=== PATIENT | female | born 1950 | race Caucasian/White ===

== ENCOUNTER 2025-04-07 08:30 | Day surgery (SDC) | payer MEDICARE ==
[~2025-04-07] VITALS: Ht 165.1 cm; Wt 79.5 kg
[2025-04-07] VITALS (12 sets, daily range): BP systolic 103–139; BP diastolic 73–95; PULSE 91–107; RESP 16; TEMP 98.1; O2SAT 91–99
--- NOTE | 2025-04-07 08:57 | ELECTROCARDIOGRAPH REPORT ---
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 Siri Ayala Measurements Intervals [place] Rate: 105 P: 34 MD: 192 QRS: -23 QRSD: 88 T: 29 QT: 358 QTc: 474 Interpretive Statements Sinus tachycardia Borderline left axis deviation Electronically Signed On 04-08-2025 5:55:[address] Siri Ayala Please click the below link to view image of tracing.
[2025-04-07 09:25] LABS: MEAN PLATELET VOLUME 9.4 FL (7.4-10.4); RED CELL DISTRIBUTION WIDTH 13.9 % (11.5-14.5)
[2025-04-07] MEDS ORDERED: LOSA100T58 PO (09:36)
[2025-04-07] MEDS ORDERED: SIMV5TAB58 PO (09:36)
[2025-04-07] MEDS ORDERED: PRIM50TA5 PO (09:36)
[2025-04-07 09:38] LABS: INR 1.0 INR
[2025-04-07 09:48] LABS: CREATININE 0.77 MG/DL (0.40-0.90); TOTAL CARBON DIOXIDE 28.9 MMOL/L (24-32); eCRCL 57 ML/MIN; eGFR 73 ML/MIN
[2025-04-07 10:03] LABS: PRO BRAIN NATRIURETIC PEPTIDE 74 PG/ML (0-450)
[2025-04-07] MEDS ORDERED: midazolam 1 mg/ML 2ml injection ONE ×2 (10:21→11:07)
[2025-04-07] MEDS ORDERED: fentaNYL/PF 50MCG/1 ML 2ML syringe ONE (10:21)
[2025-04-07] MEDS ORDERED: LIDOcaine 1% 30ml preserv. free vial ONE (10:21)
[2025-04-07] MEDS ORDERED: iohexol 350 MG/ML 50ML vial IV ONE (10:22)
--- NOTE | 2025-04-07 10:43 | RADIOLOGY REPORT ---
CHEST RADIOGRAPH Indication: pre heart cath Technique: Frontal and lateral view of the chest was obtained Comparison: None FINDINGS: Lines and Tubes: None Lungs: Clear Pleura: No effusion. No pneumothorax. Cardiomediastinal contours: Unremarkable Bones: Unremarkable IMPRESSION: No evidence of acute disease.
[2025-04-07] MEDS ORDERED: HYDROcodone/acetaminophen 5mg/325mg tablet PO PRN (12:15)
[2025-04-07] MEDS ORDERED: ondansetron/PF 4mg/2ml inj IV PRN (12:15)
[2025-04-07] MEDS ORDERED: OXAZEpam 15mg capsule PO PRN (12:15)
[2025-04-07] MEDS: HYDROcodone/acetaminophen 10/325mg tab PO PRN (12:18)
[2025-04-07 12:23] LABS: ISTAT HGB MIX 11.9 g/dl (12.0-16.0); ISTAT Hct MIX 35 %PCV (35-45); ISTAT O2 SATURATION MIX VENOUS 71 % (60-80); ISTAT O2 SATURATION MIX VENOUS 90 % (60-80); ISTAT SOURCE BLNK
--- NOTE | 2025-04-07 12:42 | CARDIOLOGY REPORT ---
DATE OF SERVICE: 04/07/2025 DICTATING PHYSICIAN: Isaias Cazares MD PROCEDURES: * Right heart catheterization, cardiac output, oximetry. * Left heart catheterization. * Left ventriculography. * Selective left and right coronary arteriography. * Right iliofemoral arteriogram and Angio-Seal application. * Conscious sedation administration: 30 minutes. BRIEF HISTORY AND INDICATION: A 74-year-old female with onset of class 3 dyspnea of exertion with anginal discomfort approximately 2 weeks ago. She is obese and is limited by degenerative joint disease. She is unable to keep up with her on their walks. Risks, benefits, and alternatives of diagnostic heart catheterization were discussed with her and she has decided to proceed. Risks included not restricted to , stroke, myocardial infarction, renal failure, neurologic, vascular complication, bleeding complications, allergic reaction. TECHNIQUE: Following usual sterile preparation and draping the right groin was infiltrated with 69 mL of lidocaine local anesthetic at arterial and venous puncture site. Conscious sedation was achieved with 4 mg Versed and 100 mcg fentanyl. The patient was maintained on oxygen 2 liters per minute. Normal saline 100 mL per hour. Following single wall puncture technique, a J-tip guidewire with a 6-Ethiopian sheath was introduced into the right femoral ____ sheath and right femoral vein. Coronary angiography, left heart catheterization, and left ventriculography were performed with 6-Ethiopian femoral left 4 and right 4 Larry shaped catheters and a straight pigtail catheter. Catheter exchanges were under fluoroscopic guidance with a J-tip guidewire lead. Right heart catheterization was performed with a 7.5-[place]ian ___ [place] Kolby catheter requiring a 0.025 J-tip guidewire for stiffening. AO and PO saturations were obtained. Cardiac outputs were performed. At termination, a right iliofemoral arteriogram was performed. Angio-Seal was applied at cardiac cath lab technologist. Hemostasis was obtained. There were no complications. The [place] and venous sheath were removed. Hemostasis was obtained with manual compression. 60 mL of Omnipaque 350 contrast was administered. Fluoroscopy time was 6 minutes. Radiation exposure was 2597 cGy per cm2. FINDINGS: 5 feet 5 inches, 175 pounds, 74-year-old female. AO 142/84. LV 142/2/7. Cardiac output: 6.5 L/min, cardiac index 3.48. Oxygen saturation 90%. PA saturation 71% on 2 liters per minute. The patient is awake. During inspiration, RA 9/5, RV 43/23, PA 43/16, ____ 4. During expiration, RA 14/12, RV 55/30, PA 58/26, ____ 14. LEFT VENTRICULOGRAM: Normal contractility. Ejection fraction 66%. Apical early relaxation pattern. Right iliofemoral is smooth. Left main coronary are smooth. Left anterior diagonal is smooth. Mid left anterior descending has intramuscular course with mild crimping. Left circumflex and obtuse marginals are smooth. Right coronary and posterior descending arteries are smooth. RESULTS: * Pulmonary hypertension, moderate. * Normal left ventriculogram, apical early relaxation pattern, ejection fraction of 66%. * Smooth left main coronary artery. * Smooth left anterior descending, left circumflex and right coronary arteries. COMMENT: The patient's symptoms are referable to a combination of pulmonary hypertension, obesity, and deconditioning. RECOMMENDATIONS: Continue risk factor intervention and medical therapy. Isaias Cazares MD TID: [id number] RECEIPT: [id number] TR/CHRISTIE
== END 2025-04-07 17:15 | disposition home or self-care (01) ==
LOC: SSTAY O 08:30
PROVIDERS: ATTEND Internal Medicine Cardiovascular Disease
DX: R06.09 Other forms of dyspnea (principal); I10 Essential (primary) hypertension; E66.9 Obesity, unspecified; Z68.29 Body mass index [BMI] 29.0-29.9, adult
CPT/HCPCS: 36415; 71046; 80053; 82803; 83880; 84484; 85014; 85025; 85610; 93005; 93460; 99152; 99153; A4615; A6258; C1751; C1760; J1644; J2003; J2250; J3010; J7030; Q0163; Q9967; Z7610